=== PATIENT | female | born 1985 | race African-American/Black ===

== ENCOUNTER 2021-01-10 13:35 | Emergency (ER) | payer OTHER, SELFPAY ==
[2021-01-10] MEDS ORDERED: Sodium Chloride 0.9% 1,000 ML ONE (15:04)
[2021-01-10] MEDS ORDERED: Ketorolac Tromethamine 30 MG/ML VIAL ONE (15:04)
[2021-01-10 17:45] LABS: Hemoglobin 11.5 g/dL (12.0-16.0); Red Blood Cell (RBC) Count 4.02 mill/uL (4.20-5.40)
[2021-01-10 17:46] LABS: #Eosinphils 0.1 thou/uL (0.0-0.7); #Lymphocytes 2.2 thou/uL (1.20-3.40); #Monocytes 0.5 thou/uL (0.11-0.59); #Neutrophils 2.2 thou/uL (1.40-6.50); %Basophils 1.3 % (0.0-1.0); %Eosinophils 2.5 % (0.0-10.0); %Lymphocytes 43.5 % (21.0-51.0); %Monocytes 9.7 % (0.0-10.0); Mean Corpuscular HGB CONC 30.2 g/dL (32.0-36.0); Mean Corpuscular Hemoglobin 28.6 pg (27.0-31.0); Mean Corpuscular Volume 94.6 fL (78.0-98.0); Mean Platelet Volume 7.6 fL (7.4-10.4); Platelet Count 175 thou/uL (130-400); RBC Distribution Width 13.8 % (11.5-14.5)
[2021-01-10 17:47] LABS: #Basophils 0.1 thou/uL (0.0-0.2); Pregnancy Test - Urine (BHCG) Negative (Negative)
[2021-01-10 17:48] LABS: Pregu Control Background? CLEAR/WHITE (CLR/WHITE); Pregu Control Bar Appear? YES (CONTROL BAR); Specific Gravity 1.025 (1.002-1.036)
[2021-01-10 17:49] LABS: Bilirubin Negative (Negative); Blood, Urine Large (Negative); Glucose, Urine (Dipstick) Negative (Negative); Ketone, Urine Negative (Negative); Leukocyte Negative (Negative); Nitrite Negative (Negative); Protein, Urine (Dipstick) Negative (Neg-Trace); Specific Gravity, Urine 1.025 (1.005-1.030); Urobilinogen 0.2 mg/dL (Less than 2); pH, Urine 5.5 (5.0-9.0)
[2021-01-10 17:51] LABS: Clarity Clear (Clear)
[2021-01-10 17:52] LABS: Bacteria/HPF Rare-Few HPF (None Seen); Squamous Epithelial 0-3 HPF (0-3); WBC/HPF None Seen HPF (0-3)
[2021-01-10 17:58] LABS: ALT (SGPT) 16 U/L (8-55); AST (SGOT) 17 U/L (5-34); Alkaline Phosphatase 58 U/L (40-110); Anion Gap 13 mmol/L (10-20); BUN (Urea Nitrogen) 11 mg/dL (7.0-18.7); Bilirubin, Total 0.2 mg/dL (0.2-1.2); Calc. Creatinine Clearance 0 mL/min (70-130); Calcium 8.8 mg/dL (7.8-10.44); Carbon Dioxide 25 mmol/L (22-29); Chloride 106 mmol/L (98-107); Glucose 95 mg/dL (70-105); Potassium 3.8 mmol/L (3.5-5.1); Sodium 140 mmol/L (136-145)
== END 2021-01-10 18:08 | disposition home or self-care (01) ==
LOC: MADERS 16:59
DX: R10.9 Unspecified abdominal pain (principal); R31.9 Hematuria, unspecified; Z86.69 Personal history of other diseases of the nervous system and sense organs
CPT/HCPCS: 80053; 81003; 81015; 81025; 85025; 96374; J1885; J7050

== ENCOUNTER 2021-05-09 08:51 | Emergency (ER) | payer OTHER, SELFPAY ==
[2021-05-09 09:32] LABS: Bilirubin Small (Negative); Blood, Urine Moderate (Negative); Clarity Clear (Clear); Glucose, Urine (Dipstick) Negative (Negative); Ketone, Urine 15 mg/dL (Negative); Leukocyte Negative (Negative); Nitrite Negative (Negative); Protein, Urine (Dipstick) 30 mg/dL (Neg-Trace)
[2021-05-09 09:33] LABS: Specific Gravity, Urine 1.036 (1.002-1.036)
[2021-05-09 09:34] LABS: Pregnancy Test - Urine (BHCG) Negative (Negative); Pregu Control Background? CLEAR/WHITE (CLR/WHITE); Pregu Control Bar Appear? YES (CONTROL BAR); Specific Gravity 1.036 (1.002-1.036)
[2021-05-09 09:36] LABS: RBC/HPF 21-50 HPF (0-3); WBC/HPF 0-3 HPF (0-3)
[2021-05-09 09:37] LABS: Bacteria/HPF Rare-Few HPF (None Seen)
[2021-05-09] MEDS ORDERED: Morphine 4 MG/ML VIAL ONE (09:43)
[2021-05-09] MEDS ORDERED: Acetaminophen 500 MG TAB ONE (09:43)
[2021-05-09] MEDS ORDERED: Sodium Chloride 0.9% 1,000 ML ONE (09:43)
[2021-05-09 10:03] LABS: Hemoglobin 12.5 g/dL (12.0-16.0); Mean Corpuscular HGB CONC 31.2 g/dL (32.0-36.0); Mean Corpuscular Hemoglobin 29.3 pg (27.0-31.0); Mean Corpuscular Volume 93.9 fL (78.0-98.0); Mean Platelet Volume 7.5 fL (7.4-10.4); Platelet Count 91 thou/uL (130-400); RBC Distribution Width 12.8 % (11.5-14.5); Red Blood Cell (RBC) Count 4.28 mill/uL (4.20-5.40)
[2021-05-09 10:08] LABS: ALT (SGPT) 16 U/L (8-55); AST (SGOT) 20 U/L (5-34); Albumin 4.2 g/dL (3.5-5.0); Alkaline Phosphatase 55 U/L (40-110); Anion Gap 12 mmol/L (10-20); BUN (Urea Nitrogen) 9 mg/dL (7.0-18.7); Bilirubin, Total Less than 0.2 mg/dL (0.2-1.2); Calc. Creatinine Clearance 0 mL/min (70-130); Calcium 9.5 mg/dL (7.8-10.44); Carbon Dioxide 26 mmol/L (22-29); Chloride 102 mmol/L (98-107); Globulin 3.7 g/dL (2.4-3.5); Glucose 96 mg/dL (70-105); Potassium 4.1 mmol/L (3.5-5.1); Protein, Total 7.9 g/dL (6.0-8.3); Sodium 136 mmol/L (136-145)
[2021-05-09 10:12] LABS: MDiff Complete? YES; Manual Diff?? YES; Neutrophil 60 % (42-75)
[2021-05-09 10:13] LABS: Band 3 % (5-11); Eosinophils 1 % (0-10); Lymphocytes 29 % (21-51); Monocytes 7 % (0-10); Platelet Morphology Comment Appears Decreased
[2021-05-09] MEDS ORDERED: Iopamidol 370 76% 100 ML VIAL ONE (10:23)
[2021-05-09 12:35] LABS: SARS-CoV-2 NAA Rapid Test DETECTED (NotDetected)
[2021-05-09] MEDS ORDERED: Vancomycin HCl 500 MG VIAL ONE (13:16)
== END 2021-05-09 16:20 | disposition short-term general hospital (02) ==
LOC: MADERS 08:51
DX: U07.1 COVID-19 (principal); A41.9 Sepsis, unspecified organism; J18.9 Pneumonia, unspecified organism
CPT/HCPCS: 71260; 74176; 74177; 80053; 81003; 81015; 81025; 83605; 85025; 87040; 87086; 96365; 96366; 96367; 96375; J1956; J2270; J3370; J7050; J7070; Q9967; U0002